=== PATIENT | female | born 1945 | race Caucasian/White ===

== ENCOUNTER 2020-03-03 13:38 | Outpatient (CLI) | payer MEDICARE, MEDICAID, SELFPAY ==
--- NOTE | 2020-03-03 13:45 | MM_ITS ---
WS: [id number] BILATERAL DIGITAL SCREENING MAMMOGRAPHY WITH CAD CLINICAL INFORMATION: SCREENING HISTORY: Screening mammogram. No current complaints. COMPARISON: TECHNIQUE: Bilateral CC and MLO views. FINDINGS: Scattered fibroglandular densities bilaterally. No suspicious focal mass, asymmetry, calcifications, or architectural distortion. No evidence of malignancy. Lucent centered and vascular calcification. D ystrophic and punctate calcifications. MM/[place] [id number] IMPRESSION: BI-RADS: 2-Benign FOLLOW UP: 1 Year Follow-up Recommend return to annual screening mammography.
== END 2020-03-03 13:39 | disposition home or self-care (01) ==
PROVIDERS: PCP Internal Medicine; Visit Provider Internal Medicine
DX: Z12.31 Encounter for screening mammogram for malignant neoplasm of breast (principal)
CPT/HCPCS: 77067

== ENCOUNTER → 2020-07-15 09:04 | Outpatient (BNVA) | payer MEDICARE, MEDICAID, SELFPAY | PROVIDERS: PCP Internal Medicine; Visit Provider Family Medicine | DX: I10 Essential (primary) hypertension (principal); E78.5 Hyperlipidemia, unspecified; E11.9 Type 2 diabetes mellitus without complications; H69.80 Other specified disorders of Eustachian tube, unspecified ear | CPT/HCPCS: 80053; 80061; 81015; 82043; 83036; 85025 ==

== ENCOUNTER 2021-01-09 08:42 | Outpatient (CLI) | payer MEDICARE, MEDICAID, SELFPAY ==
--- NOTE | 2021-01-09 08:49 | XR_ITS ---
WS: [id number] Left forearm, AP and lateral views, 01/09/2021 Clinical Data: left forearm pain Comparison: None. Findings: No fracture or dislocations are seen. The soft tissues are normal. The visualized left wrist and elbo w show no obvious fractures. XR/XR forearm LT 2V [id number] Impression: Negative for left forearm fracture.
--- NOTE | 2021-01-09 08:49 | XR_ITS ---
WS: [id number] Left wrist, AP and lateral views, 01/09/2021 Clinical Data: left wrist pain Comparison: None. Findings: No fractures or dislocations are seen. The carpal bones are intact. There is no soft tissue swelling. There is irregularity of the distal ulna which may be from an old injury. XR/XR wrist LT 2V [id number] Impression: Negative for fracture of the left wrist.
== END 2021-01-09 08:43 | disposition home or self-care (01) ==
PROVIDERS: PCP Internal Medicine; Visit Provider Family Medicine
DX: M79.602 Pain in left arm (principal); M25.532 Pain in left wrist; E78.5 Hyperlipidemia, unspecified; E11.9 Type 2 diabetes mellitus without complications; I10 Essential (primary) hypertension
CPT/HCPCS: 73090; 73100; 80053; 80061; 83036

== ENCOUNTER 2021-03-05 09:03 | Outpatient (CLI) | payer MEDICARE, MEDICAID, SELFPAY ==
--- NOTE | 2021-03-05 09:09 | MM_ITS ---
WS: [id number] BILATERAL SCREENING DIGITAL MAMMOGRAM WITH CAD HISTORY: SCREENING COMPARISON: 03/03/2020 and 12/07/2018 Bilateral CC and MLO views submitted. Computer aided detection analyzed. Breast composition: There are scattered areas of fibroglandular density. No suspicious masses, microc alcifications or architectural distortion. Numerous benign calcifications scattered bilaterally. Ther e are additional rodlike calcifications bilaterally. MM/[place] [id number] IMPRESSION: BI-RADS: 2-Benign FOLLOW UP: 1 Year Follow-up
== END 2021-03-05 09:04 | disposition home or self-care (01) ==
LOC: RADSHAW 09:08
PROVIDERS: PCP Family Medicine; Visit Provider Family Medicine
DX: Z12.31 Encounter for screening mammogram for malignant neoplasm of breast (principal)
CPT/HCPCS: 77067

== ENCOUNTER → 2021-08-10 08:24 | Outpatient (BNVA) | payer MEDICARE, MEDICAID, SELFPAY | PROVIDERS: PCP Family Medicine; Visit Provider Family Medicine | DX: E11.9 Type 2 diabetes mellitus without complications (principal); E78.5 Hyperlipidemia, unspecified; I10 Essential (primary) hypertension | CPT/HCPCS: 80053; 80061; 82043; 83036; 85025 ==

== ENCOUNTER → 2021-08-26 14:18 | Outpatient (BNVA) | payer MEDICARE, MEDICAID, SELFPAY | PROVIDERS: PCP Family Medicine; Visit Provider Nurse Practitioner Family | DX: Z20.822 Contact with and (suspected) exposure to COVID-19 (principal) | CPT/HCPCS: 87635 ==

== ENCOUNTER → 2021-11-10 09:44 | Outpatient (BNVA) | payer MEDICARE, MEDICAID, SELFPAY | PROVIDERS: PCP Family Medicine; Visit Provider Family Medicine | DX: E11.9 Type 2 diabetes mellitus without complications (principal) | CPT/HCPCS: 80053; 83036 ==

== ENCOUNTER 2022-03-12 08:37 | Outpatient (CLI) | payer MEDICARE, MEDICAID, SELFPAY ==
--- NOTE | 2022-03-12 08:43 | MM_ITS ---
WS: [id number] BILATERAL SCREENING DIGITAL BREAST TOMOSYNTHESIS MAMMOGRAM WITH CAD HISTORY: SCREENING COMPARISON: 03/05/2021 and 03/03/2020 Bilateral CC and MLO views with tomosynthesis and synthetic mammography submitted. Computer aided det ection analyzed. Breast composition: There are scattered areas of fibroglandular density. No suspicious masses, microc alcifications or architectural distortion. Numerous bilateral benign calcifications. MM/[place] [id number] IMPRESSION: BI-RADS: 2-Benign FOLLOW UP: 1 Year Follow-up
== END 2022-03-12 08:38 | disposition home or self-care (01) ==
LOC: RAD 08:38
PROVIDERS: PCP Family Medicine; Visit Provider Family Medicine
DX: Z12.31 Encounter for screening mammogram for malignant neoplasm of breast (principal)
CPT/HCPCS: 77063; 77067

== ENCOUNTER → 2022-05-11 08:40 | Outpatient (BNVA) | payer MEDICARE, MEDICAID, SELFPAY | PROVIDERS: PCP Family Medicine; Visit Provider Family Medicine | DX: I10 Essential (primary) hypertension (principal); E11.9 Type 2 diabetes mellitus without complications; E78.5 Hyperlipidemia, unspecified | CPT/HCPCS: 80053; 80061; 82043; 83036; 85025 ==

== ENCOUNTER → 2022-11-09 09:13 | Outpatient (BNVA) | payer MEDICARE, MEDICAID, SELFPAY | PROVIDERS: PCP Family Medicine; Visit Provider Family Medicine | DX: E11.9 Type 2 diabetes mellitus without complications (principal); J45.909 Unspecified asthma, uncomplicated | CPT/HCPCS: 80053; 83036 ==

== ENCOUNTER → 2023-01-31 09:07 | Outpatient (BNVA) | payer MEDICARE, MEDICAID, SELFPAY | PROVIDERS: PCP Family Medicine; Visit Provider Family Medicine | DX: E11.9 Type 2 diabetes mellitus without complications (principal) | CPT/HCPCS: 80053; 83036 ==

== ENCOUNTER 2023-03-16 07:31 | Outpatient (CLI) | payer MEDICARE, MEDICAID, SELFPAY ==
--- NOTE | 2023-03-16 | MM_ITS ---
WS: [id number] BILATERAL SCREENING DIGITAL TOMOSYNTHESIS MAMMOGRAM WITH CAD HISTORY: SCREENING COMPARISON: 03/12/2022 and 03/05/2021 Bilateral CC and MLO views with tomosynthesis and synthetic mammography submitted. Computer aided det ection analyzed. Breast composition: There are scattered areas of fibroglandular density. No suspicious masses, microc alcifications or architectural distortion. Numerous benign calcifications in each breast. MM/[place] [id number] IMPRESSION: BI-RADS: 2-Benign FOLLOW UP: 1 Year Follow-up
== END 2023-03-16 07:32 | disposition home or self-care (01) ==
LOC: RAD 07:35
PROVIDERS: PCP Family Medicine; Visit Provider Family Medicine
DX: Z12.31 Encounter for screening mammogram for malignant neoplasm of breast (principal)
CPT/HCPCS: 77063; 77067

== ENCOUNTER → 2023-05-10 09:20 | Outpatient (BNVA) | payer MEDICARE, MEDICAID, SELFPAY | PROVIDERS: PCP Family Medicine; Visit Provider Family Medicine | DX: I10 Essential (primary) hypertension (principal); E78.5 Hyperlipidemia, unspecified; E11.9 Type 2 diabetes mellitus without complications; Z78.0 Asymptomatic menopausal state; J45.41 Moderate persistent asthma with (acute) exacerbation | CPT/HCPCS: 80053; 80061; 82043; 83036; 85025 ==

== ENCOUNTER 2023-05-24 14:32 | Outpatient (CLI) | payer MEDICARE, MEDICAID, SELFPAY ==
--- NOTE | 2023-05-24 15:00 | XR_ITS ---
WS: [id number] SCREENING DEXA SCAN Qype CLINICAL INFORMATION: postmenopausal COMPARISON: None. FINDINGS: The L1-L4 bone mineral density measures 1.270 g/cm2. This corresponds to a T score score of 0.7 and Z score of 2.2. Left femoral neck bone mineral density measures 0.870 g/cm2. This corresponds to a T score of -1.1 an d Z score of 0.4. Right femoral neck bone mineral density measures 0.936 g/cm2. This corresponds to a T score -0.6of an d Z score of 1.0. Mean femoral neck bone mineral density measures 0.903 g/cm2. This corresponds to a T score of -0.8 an d Z score of 0.7. IMPRESSION: Normal bone mineralization lumbar spine. Normal bone mineralization femoral necks approaching osteope elenita. Patient's FRAX calculated 10 year probability for major osteoporotic fracture is 20.9% and osteoporot ic hip fracture is 5.4%.
== END 2023-05-24 14:33 | disposition home or self-care (01) ==
LOC: RAD 14:35
PROVIDERS: PCP Family Medicine; Visit Provider Family Medicine
DX: Z78.0 Asymptomatic menopausal state (principal)
CPT/HCPCS: 77080

== ENCOUNTER → 2023-06-29 08:59 | Outpatient (BNVA) | payer MEDICARE, MEDICAID, SELFPAY | PROVIDERS: PCP Family Medicine; Visit Provider Nurse Practitioner Family | DX: C44.311 Basal cell carcinoma of skin of nose (principal); L57.8 Other skin changes due to chronic exposure to nonionizing radiation; D18.01 Hemangioma of skin and subcutaneous tissue; L81.4 Other melanin hyperpigmentation; L82.1 Other seborrheic keratosis | CPT/HCPCS: 11102; 99213 ==

== ENCOUNTER → 2023-07-25 07:58 | Outpatient (BNVA) | payer MEDICARE, MEDICAID, SELFPAY | PROVIDERS: PCP Family Medicine; Visit Provider Dermatology | DX: C44.311 Basal cell carcinoma of skin of nose (principal) | CPT/HCPCS: 17311 ==

== ENCOUNTER → 2023-08-23 10:26 | Outpatient (BNVA) | payer MEDICARE, MEDICAID, SELFPAY | PROVIDERS: PCP Family Medicine; Visit Provider Dermatology | DX: Z48.817 Encounter for surgical aftercare following surgery on the skin and subcutaneous tissue (principal); Z85.828 Personal history of other malignant neoplasm of skin; L57.8 Other skin changes due to chronic exposure to nonionizing radiation; L81.4 Other melanin hyperpigmentation | CPT/HCPCS: 99213 ==

== ENCOUNTER → 2023-11-08 08:52 | Outpatient (BNVA) | payer MEDICARE, MEDICAID, SELFPAY | PROVIDERS: PCP Family Medicine; Visit Provider Family Medicine | DX: E11.9 Type 2 diabetes mellitus without complications (principal); R00.2 Palpitations; I10 Essential (primary) hypertension; Z11.59 Encounter for screening for other viral diseases | CPT/HCPCS: 80048; 83036; 86803 ==

== ENCOUNTER → 2024-04-10 12:38 | Outpatient (BNVA) | payer OTHER, MEDICAID, SELFPAY | PROVIDERS: PCP Family Medicine; Referring Provider Family Medicine; Visit Provider Internal Medicine | DX: R00.1 Bradycardia, unspecified (principal) | CPT/HCPCS: 93005 ==

== ENCOUNTER → 2024-04-24 11:34 | Outpatient (BNVA) | payer OTHER, MEDICAID, SELFPAY | PROVIDERS: PCP Family Medicine; Visit Provider Family Medicine | DX: R00.1 Bradycardia, unspecified (principal) | CPT/HCPCS: 80053; 80061; 83036; 84439; 84443; 85025 ==

== ENCOUNTER → 2024-05-28 11:34 | Outpatient (BNVA) | payer OTHER, MEDICAID, SELFPAY | PROVIDERS: PCP Family Medicine; Visit Provider Family Medicine | DX: B35.1 Tinea unguium (principal) | CPT/HCPCS: 80053 ==

== ENCOUNTER 2024-05-29 08:12 | Outpatient (CLI) | payer OTHER, MEDICAID, SELFPAY ==
--- NOTE | 2024-05-29 | ECG_ITS ---
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 Interpretive Statements Exercise sestamibi stress test EXERCISE DATA: The patient was exercised by Topher protocol. Baseline heart rate was 48 beats per minute. Baseline blood pressure [id number]/83millimeters of mercury. Maximal predicted heart rate was 144 beats per minute. Maximum heart rate achieved [id number], which was 104% of the maximum predicted heart rate. Maximum blood pressure [id number]/77 millimeters of mercury. Total exercise time was 3 minutes 55 seconds. Maximum METs achieved was 7. The reason for ending the test was maximal effort was achieved. The patient complained of shortness of breath during the stress test, which then resolved at the end of the test. ELECTROCARDIOGRAM: BASELINE: Showed sinus bradycardia, normal axis, no significant ST-T changes at the baseline noted. [] EXERCISE: At the peak exercise level, [] No significant ST-T changes suggestive of ischemia noted. [] RECOVERY: During the recovery period, heart rate dropped appropriately. No significant ST-T changes in the recovery suggestive of ischemia noted. [] CONCLUSION: 1. Exercise capacity is fair. 2. Heart rate response was appropriate. 3. Blood pressure response was appropriate. 4. Symptoms not suggestive of ischemia. 5. Electrocardiogram portion of the stress test was not suggestive of ischemia. 6. Nuclear scan will be documented separately. Electronically Signed On 06-01-2024 20:26:36 CDT by Spencer Tamez M.D. [email or web address]
--- NOTE | 2024-05-29 08:14 | NMCV_ITS ---
NM latricia perf SPECT r/s* [id number] Annette Jin Age: 78 Gender: F : 1945 Exam Date: 05/29/2024 08:56 Ordering Phys: Spencer Tamez M.D ([email or web address]) Technologist: NELSY Lindsay Exam Location: [facility] Indications: cp STRESS TEST [facility] IMAGE PROTOCOL Rest/Stress 1 Exercise Day Radiopharmaceutical Dose (mCi) Administration Site Administered by Rest: Tc-99m 10.2 IV NELSY Lindsay Sestamibi Stress:Tc-99m 32.8 IV Erica Diamond, JET MECHANIC Sestamibi Rest: 29-May-2024 60 Discovery 630 Stress: 29-May-2024 10 Discovery 630 Radiopharmaceutical was injected at 85 % maximum heart rate. Images obtained in supine and prone position. SPECT RESULTS Technical Quality: Good Raw Data Analysis: Normal Image Corrections: No attenuation or motion correction applied Summed Stress Score: 2 Summed Rest Score: 1 Summed Difference Score: 1 PERFUSION FINDINGS Small area of fixed perfusion defect is seen in the inferolateral wall. 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 No evidence of ischemia FUNCTIONAL RESULTS (calculated via Gated SPECT) Stress Image LV EF (%): 75 Stress EDV (mL):60 TID: 0.88 Stress ESV (mL):15 FUNCTIONAL FINDINGS: There is normal left ventricular systolic function. IMPRESSIONS 1. 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 No evidence of ischemia. 2. LV systolic function is normal. Spencer Tamez MD (Electronically Signed) Final Date: 29 May 2024 11:04 S
[2024-05-29 08:15] VITALS: BMI 31.1
[2024-05-29 09:50] VITALS: BP 175/79; PULSE 62
--- NOTE | 2024-05-29 11:00 | USCV_ITS ---
Annette Jin Age: 78 Gender: F : 1945 Exam Date: 05/29/2024 10:42 Ordering Phys: Spencer Tamez M.D ([email or web address]) Technologist: [place] [facility] [place]: cp BP: 130 / 80 HR: 56 Rhythm: Sinus Technical Quality: Adequate MEASUREMENTS (Male / Female) Normal Values 2D ECHO LV Diastolic Diameter PLAX 4.1 cm 4.2 - 5.9 / 3.9 - 5.3 cm IVS Diastolic Thickness 0.9 cm 0.6 - 1.0 / 0.6 - 0.9 cm IVS Systolic Thickness 1.6 cm LVPW Diastolic Thickness 1.1 cm 0.6 - 1.0 / 0.6 - 0.9 cm LVPW Systolic Thickness 1.4 cm LVOT Diameter 2.1 cm LV Ejection Fraction 2D Teich 63.0 % LV Ejection Fraction MOD 4C 69.8 % LV Ejection Fraction MOD 2C 65.9 % LV Ejection Fraction 2C AL 67.7 % LA Diameter 2.9 cm RA Systolic Volume 4C AL 37.1 ml RA Systolic Volume 4C MOD 37.8 ml Aorta at Sinotubular Diameter 2.7 cm IVC Diameter 1.7 cm M-MODE LA Ao Ratio MM 1.3 AV Cusp Separation MM 2.0 cm DOPPLER AV Peak Velocity 113.0 cm/s LVOT Peak Velocity 70.0 cm/s AV Area Cont Eq vti 2.0 cm squared AV Area Cont Eq pk 2.1 cm squared MV Peak Velocity 116.0 cm/s MV Area PHT 5.6 cm squared Mitral E to A Ratio 0.9 TR Peak Velocity 295.0 cm/s TR Peak Gradient 34.8 mmHg TV Peak E Velocity 96.0 cm/s Right Atrial Pressure 3.0 mmHg Pulmonary Artery Systolic Pressu 37.8 mmHg PV Peak Velocity 72.0 cm/s FINDINGS Left Ventricle Normal left ventricular size, systolic function and wall thickness, with no regional wall motion abnormalities. Left ventricular ejection fraction is estimated at 60 %. Grade I/IV diastolic dysfunction (abnormal relaxation filling pattern), normal to mildly elevated filling pressures. Right Ventricle The right ventricle is normal in size and function. Right Atrium The right atrium is normal in size. Left Atrium The left atrium is normal in size. Mitral Valve Moderately thickened mitral valve. Trace mitral valve regurgitation. Aortic Valve Moderate aortic valve calcification. No aortic valve stenosis. Trace aortic valve regurgitation. Tricuspid Valve Structurally normal tricuspid valve without significant stenosis or regurgitation. Pulmonary artery systolic pressure is normal. Pulmonic Valve Structurally normal pulmonic valve without significant stenosis. There is no pulmonic regurgitation. Pericardium Normal pericardium without effusion. Aorta Normal ascending aorta dimension. IVC The inferior vena cava appears normal. CONCLUSIONS Normal left ventricular size, systolic function and wall thickness, with no regional wall motion abnormalities. Left ventricular ejection fraction is estimated at 60 %. Grade I/IV diastolic dysfunction (abnormal relaxation filling pattern), normal to mildly elevated filling pressures No significant valve abnormalities. There is no pericardial effusion. Pulmonary artery systolic pressure is within normal limits. Right atrial pressure is around 5 mm of mercury. Stone Welsh MD (Electronically Signed) Final Date: 29 May 2024 17:54 S
== END 2024-05-29 08:13 | disposition home or self-care (01) ==
LOC: CDL 08:12
PROVIDERS: PCP Family Medicine; Visit Provider Internal Medicine
DX: I50.30 Unspecified diastolic (congestive) heart failure (principal); I34.81 Nonrheumatic mitral (valve) annulus calcification; I70.0 Atherosclerosis of aorta; R07.9 Chest pain, unspecified; R06.09 Other forms of dyspnea
CPT/HCPCS: 36415; 78452; 93017; 93306; A9500

== ENCOUNTER → 2024-10-30 11:59 | Outpatient (BNVA) | payer OTHER, MEDICAID, SELFPAY | PROVIDERS: PCP Family Medicine; Visit Provider Family Medicine | DX: E11.9 Type 2 diabetes mellitus without complications (principal) | CPT/HCPCS: 80053; 82043; 83036 ==

== ENCOUNTER 2025-03-20 07:15 | Emergency (ER) | payer OTHER, MEDICAID, SELFPAY ==
--- OUTSIDE RECORDS SUMMARY | 2024-12-04 06:47 | XMS_ITS | Continuity of Care Document ---
Author Organization [facility] Address [address] [place] [address] Phone Care Team Providers Care Absence Management Consultant Name Role Phone Leodan Yancey DO Unavailable Unavailable Allergies, Adverse Reactions, Alerts Substance Reaction Status Criticality amoxicillin Active No Information clindamycin Active No Information oxycodone Active No Information tramadol Active No Information Sulfa (Sulfonamide Antibiotics) Active No Information PHENAZOPYRIDINE HCL Active No Infor mation Medications Medication Instructions Dosage Effective Dates (start - stop) Status Comments Valium 2 mg tablet TAKE 1 TABLET BY MOUTH AT BEDTIME - Active Novolin N NPH U-100 Insulin isophane 100 unit/mL subcutaneous susp Inject 21u under the skin every morning & 36u every evening (5 vials for 88 days supply) - Active hydrochlorothiazide 50 mg tablet take 1 tablet by oral route every day 50 MG - Active levothyroxine 75 mcg tablet TAKE 1 TABLET BY MOUTH EVERY DAY - Active glipizide 10 mg tablet TAKE 1 TABLET BY MOUTH TWICE DAILY BEFORE A MEAL - Active True Metrix Glucose Test Strip USE TO TEST BLOOD SUGAR DAILY - Active Humulin N NPH U-100 Insulin (isophane susp) 100 unit/mL subcutaneous INJECT 21 UNITS UNDER THE SKIN EVERY MORNING AND 36 UNITS EVERY EVENING (5 VIALS IS AN 88 DAY SUPPLY) - Active atorvastatin 40 mg tablet TAKE 1 TABLET BY MOUTH DAILY - Active Farxiga 10 mg tablet take 1 tablet by oral route every day in the morning 10 MG - Active lisinopril 40 mg tablet TAKE 1 TABLET BY MOUTH EVERY DAY - Active Humulin R Regular U-100 Insulin 100 unit/mL injection solution INJECT 5 UNITS UNDER THE SKIN EVERY MORNING AND 11 UNITS UNDER THE SKIN EVERY EVENING - Active Maximum D3 325 mcg (13,000 unit) capsule take 1 capsule by oral route every week for 1 month 1 capsule - Active True Metrix Glucose Meter kit 1 time daily - Active Co Q-10 100 mg capsule take 1 capsule by oral route every day 1 capsule - Active magnesium 250 mg tablet - Active pantoprazole 40 mg tablet,delayed release take 1 tablet by oral route every day 40 MG - Active Calcium 600 mg calcium (1,500 mg) tablet take 1 tablet by mouth daily - Active aspirin 81 mg tablet,delayed release take 1 tablet by oral route every day 81 MG - Active Ocuvite with Lutein 1,000 unit-200 mg-60 unit-2mg tablet take 1 capsule by oral route every day for 1 month 1 capsule - Active Centrum Silver Women 8 mg iron-400 mcg-300 mcg tablet take 1 tablet daily - Active B12 5,000 mcg-100 mcg sublingual lozenge take 1 tablet daily - Active cranberry 500 mg capsule take 1 tablet b y mouth daily - Active Claritin-D 24 Hour 10 mg-240 mg tablet,extended release take 1 tablet by oral route every day as needed 1.00 tablet - Active Valium 2 mg tablet TAKE 1 TABLET BY MOUTH AT BEDTIME - No Longer Active Procedures Procedure Date OFFICE/OUTPATIENT VISIT, EST COMPREHEN METABOLIC PANEL GLYCATED HEMOGLOBIN TEST LIPID PANEL ASSAY THYROID STIM HORMONE ROUTINE VENIPUNCTURE Admin influenza virus vac FLU VACC PRSV FREE INC ANTIG No Charge OFFICE/OUTPATIENT VISIT, EST ROUTINE VENIPUNCTURE No Charge COMPREHEN METABOLIC PANEL GLYCATED HEMOGLOBIN TEST LIPID PANEL DRAINAGE OF SKIN ABSCESS OFFICE/OUTPATIENT VISIT, EST URINALYSIS, AUTO, W/O SCOPE OFFICE/OUTPATIENT VISIT, EST OFFICE/OUTPATIENT VISIT, EST Admin influenza virus vac FLU VACC PRSV FREE INC ANTIG OFFICE/OUTPATIENT VISIT, EST ROUTINE VENIPUNCTURE COMPREHEN METABOLIC PANEL GLYCATED HEMOGLOBIN TEST LIPID PANEL OFFICE/OUTPATIENT VISIT, EST GLYCATED HEMOGLOBIN TEST ASSAY THYROID STIM HORMONE No Charge ROUTINE VENIPUNCTURE INFLUENZA ASSAY W/OPTIC INFLUENZA ASSAY W/OPTIC OFFICE/OUTPATIENT VISIT, EST Rocephin Ceftriaxone sodium Inj Per 250m g OFFICE/OUTPATIENT VISIT, EST OFFICE/OUTPATIENT VISIT, EST COMPREHEN METABOLIC PANEL GLYCATED HEMOGLOBIN TEST LIPID PANEL ROUTINE VENIPUNCTURE OFFICE/OUTPATIENT VISIT, EST OFFICE/OUTPATIENT VISIT, EST ROUTINE VENIPUNCTURE COMPREHEN METABOLIC PANEL GLYCATED HEMOGLOBIN TEST LIPID PANEL OFFICE/OUTPATIENT VISIT, EST ROUTINE VENIPUNCTURE BASIC METABOLIC PANEL COMPLETE CBC W/AUTO DIFF WBC GLYCATED HEMOGLOBIN TEST LIPID PANEL ASSAY THYROID STIM HORMONE OFFICE/OUTPATIENT VISIT, EST OFFICE/OUTPATIENT VISIT, EST ROUTINE VENIPUNCTURE OFFICE/OUTPATIENT VISIT, EST BASIC METABOLIC PANEL OFFICE/OUTPATIENT VISIT, EST COMPREHEN METABOLIC PANEL LIPID PANEL GLYCATED HEMOGLOBIN TEST ROUTINE VENIPUNCTURE No Charge Advance Directives Directive Yes / No Effective Date File Name No Information Encounters Encounter Description Practice Location Reason(s) For Visit Diagnoses Date Provider Providers Copied on Encounter [facility], [facility] [place], [place], [id number], tel:[phone] [facility] No Information Naye Alcocer. [address] [place], [address]. tel:[phone] [facility], [facility] [place], [id number], [place] tel:[phone] [facility] Meniere's disease, unspecified ear Naye Alcocer. [address] [place], [address]. [phone] [facility], [facility] [address] [place], [id number], [place] tel:[phone] [facility] No Information Naye Alcocer. [address] [place], [address]. [phone] OFFICE/OUTPA TIENT VISIT, EST [facility], [facility] [place], [place], [id number], [place] tel:[phone] [facility] hypertension (chief complaint)saroj betes (chief complaint) Type 2 diabetes mellitus without complicationsHypo thyroidism, unspecifiedEssent ial (primary) hypertensionCardi ac arrhythmia, unspecifiedHyperl ipidemia, unspecified 5 Naye Alcocer. [address] [place], [address]. [phone] Referring Provider: Leodan Yancey, [address] [place], [address]. tel:[phone] [facility], [facility] [place], [id number], [place] tel:[phone] [facility] Essential (primary) hypertensionType 2 diabetes mellitus without complicationsHype rlipidemia, unspecifiedHypoth yroidism, unspecified 5 Naye Alcocer. [address] [place], [address]. tel:[phone] Referring Provider: Leodan Yancey, [address] [place], [address]. tel:[phone] [facility], [facility] [address] [place], [id number], [place] tel:[phone] [facility] Type 2 diabetes mellitus without complicationsHypo thyroidism, unspecifiedEssent ial (primary) hypertensionHyper lipidemia, unspecified 5 Naye Alcocer. [address] [place], [address]. tel:[phone] Referring Provider: Leodan Yancey, [address] [place], [address]. tel:[phone] [facility], [address] [place] [address], [id number], [place] tel:[phone] [facility] No Information 4 Naye Alcocer. [address] [place], [address]. tel: [phone] [facility], [facility] [address] [place], [id number], [place] tel:[phone] [facility] No Information 4 Naye Alcocer. [address] [place], [address]. tel: [phone] [facility], [address] [place] [address], [id number], [place] tel:[phone] [facility] No Information 4 Naye Alcocer. [address] [place], [address]. tel:[phone] [facility], [address] [place] [address], [id number], [place] tel:[phone] [facility] Encounter for vaccination May- 4 Naye Alcocer. [address] [place], [address]. tel:[phone] Referring Provider: Leodan Yancey, [address] [place], [address]. tel:[phone] [facility], [facility] [place], [id number], [place] tel:[phone] [facility] No Information 4 Naye Alcocer. [address] [place], [address]. tel: [phone] [facility], [facility] [address] [place], [id number], [place] tel:[phone] [facility] No Information 4 Naye Alcocer. [address] [place], [address]. tel:[phone] OFFICE/OUTPA TIENT VISIT, EST [facility], [facility] [place], [address], [place] tel:[phone] [facility] Preventive exam (chief complaint)hyp ertension (chief complaint)saroj betes (chief complaint) Encounter for general adult medical examination without abnormal findingsType 2 diabetes mellitus without complicationsEsse ntial (primary) hypertensionHyper lipidemia, unspecified 4 Naye Alcocer. [address] [place], [address]. tel:[phone] Referring Provider: Leodan Yancey, [address] [place], [address]. tel:[phone] [facility], [facility] [place], [address], [place] tel:[phone] [facility] Type 2 diabetes mellitus without complicationsEsse ntial (primary) hypertensionHyper lipidemia, unspecified 4 Naye Alcocer. [address] [place], [address]. [phone] Referring Provider: Leodan Yancey [address] [place], [address]. tel:[phone] [facility], [facility] [place], [id number], [place] tel:[phone] [facility] No Information 4 Naye Alcocer. [address] [place], [address]. [phone] [facility], [address], [place], [id number], [place] tel:[phone] [facility] Lesion(s) (chief complaint) Cutaneous abscess of groinCellulitis [address] [place], [address], [place]. [phone] Referring Provider: Shaye Narvaez, [address] [place], [address]. tel:[phone] OFFICE/OUTPA TIENT VISIT, EST [facility], [facility] [place], [address], [place] tel:[phone] [facility] diabetes (chief complaint)Jolene nt pain (chief complaint) Type 2 diabetes mellitus without complications 4 Naye Alcocer. [address] [place], [address]. [phone] Referring Provider: Leodan Yancey, [address] [place], [address]. tel:[phone] [facility], [facility] [place], [id number], [place] tel:[phone] [facility] No Information 4 Naye Alcocer. [address] [place], [address]. [phone] OFFICE/OUTPA TIENT VISIT, EST [facility], [facility] [place], [id number], [place] tel:[phone] [facility] Urinary tract infection (chief complaint) UTI 4 Olu Bright. [address] [place], [address], [place]. [phone] Referring Provider: Kaila Raines, [address] [place], [address]. tel:[phone] OFFICE/OUTPA TIENT VISIT, EST [facility], [address], [place], [id number], tel:[phone] [facility] Cold symptoms (chief complaint) COVID-19 4 Naye Alcocer. [address] [place], [address]. tel: [phone] Referring Provider: Leodan Yancey, [address] [place], [address]. tel:[phone] [facility], [address] [place] [address], [id number], tel:[phone] [facility] No Information 3 Naye Alcocer. [address] [place], [address]. [phone] OFFICE/OUTPA TIENT VISIT, EST [facility], [address] [place] [address], [id number], tel:[phone] [facility] diabetes (chief complaint) Type 2 diabetes mellitus without complicationsEnco unter for vaccination 3 Naye Alcocer. [address] [place], [address]. tel: [phone] Referring Provider: Leodan Yancey, [address] [place], [address]. tel:[phone] [facility], [address] [place] [address], [id number], [place] tel:[phone] [facility] Type 2 diabetes mellitus without complicationsEsse ntial (primary) hypertensionHyper lipidemia, unspecified Sep-2 3 Naye Alcocer. [address] [place], [address]. tel:[phone] Referring Provider: Leodan Yancey, [address] [place], [address]. tel:[phone] OFFICE/OUTPA TIENT VISIT, EST [facility], [address] [place] [address], [id number], [place] tel:[phone] [facility] diabetes (chief complaint) Type 2 diabetes mellitus without complications 3 Naye Alcocer. [address] [place], [address]. tel: [phone] Referring Provider: Leodan Yancey, [address] [place], [address]. tel:[phone] [facility], [facility] [address] [place], [id number], [place] tel:[phone] [facility] Essential (primary) hypertensionHyper lipidemia, unspecifiedType 2 diabetes mellitus without complicationsHypo thyroidism, unspecified Oct-2 3 Naye Alcocer. [address] [place], [address]. tel: [phone] [facility], [facility] [address] [place], [id number], [place] tel:[phone] [facility] No Information Oct- 3 Naye Alcocer. [address] [place], [address]. tel: [phone] Referring Provider: Leodan Yancey, [address] [place], [address]. tel:[phone] [facility], [facility] [address] [place], [address], [place] tel:[phone] [facility] Type 2 diabetes mellitus without complications 3 Naye Alcocer. [address] [place], [address]. tel: [phone] Referring Provider: Leodan Yancey, [address] [place], [address]. tel:[phone] OFFICE/OUTPA TIENT VISIT, EST [facility], [facility] [address] [place], [address], [place] tel:[phone] [facility] Cold symptoms (chief complaint) InfluenzaCOVID-19 3 Olu Bright. [address] [place], [address], [place]. tel: [phone] Referring Provider: Kaila Raines, [address] [place], [address]. tel:[phone] OFFICE/OUTPA TIENT VISIT, EST [facility], [facility] [address] [place], [id number], [place] tel:[phone] [facility] Swelling (chief complaint) Cellulitis of right leg 2 Naye Alcocer. [address] [place], [address]. tel:[phone] Referring Provider: Leodan Yancey, [place], [address]. tel:[phone] [facility], [facility] [place], [address], tel:[phone] [facility] No Information 2 Naye Alcocer. [address] [place], [address]. tel:[phone] OFFICE/OUTPA TIENT VISIT, EST [facility], [facility] [place], [id number], tel:[phone] [facility] Diabetes (follow up) (chief complaint) Type 2 diabetes mellitus without complications 2 Naye Alcocer. [address] [place], [address]. tel: [phone] Referring Provider: Leodan Yancey, [place], [address]. tel:[phone] [facility], [facility] [place], [address], [place] tel:[phone] [facility] Type 2 diabetes mellitus without complicationsHype rlipidemia, unspecified 2 Naye Alcocer. [address] [place], [address]. tel: [phone] Referring Provider: [place], [address]. tel:[phone] [facility], [facility] [place], [address], [place] tel:[phone] [facility] Type 2 diabetes mellitus without complications 2 Naye Alcocer. [address] [place], [address]. tel:[phone] Referring Provider: [place], [address]. tel:[phone] [facility], [address], [place], [id number], [place] tel:[phone] [facility] No Information 2 Olu Bright. [address] [place], [address], [place]. tel: [phone] OFFICE/OUTPA TIENT VISIT, EST [facility], [address], [place], [id number], [place] tel:[phone] [facility] diabetes (chief complaint) Type 2 diabetes mellitus without complications 2 Naye Alcocer. [address] [place], [address]. tel: [phone] Referring Provider: Leodan Yancey, [address] [place], [address]. tel:[phone] OFFICE/OUTPA TIENT VISIT, EST [facility], [address], [place], [id number], [place] tel:[phone] [facility] Discuss test results (chief complaint)MERARY D (chief complaint)Hea dache (chief complaint) Type 2 diabetes mellitus without complicationsVert igoGERD w/o esophagitis 2 Naye Alcocer. [address] [place], [address]. tel: [phone] Referring Provider: Leodan Yancey, [address] [place], [address]. tel:[phone] [facility], [address] [place], [place], [id number], [place] tel:[phone] [facility] Type 2 diabetes mellitus without complicationsHype rlipidemia, unspecified 2 Naye Alcocer. [address] [place], [address]. tel: [phone] Referring Provider: Leodan Yancey, [address] [place], [address]. tel:[phone] OFFICE/OUTPA TIENT VISIT, EST [facility], [address], [place], [id number], [place] tel:[phone] [facility] Discuss test results (chief complaint)saroj tolbert (chief complaint) Type 2 diabetes mellitus without complications 1 Naye Alcocer. [address] [place], [address]. tel: [phone] Referring Provider: Leodan Yancey, [place], [address]. tel:[phone] [facility], [address], [place], [address], tel:[phone] [facility] Hyperlipidemia, unspecifiedType 2 diabetes mellitus without complicationsEsse ntial (primary) hypertensionMalig nant neoplasm of unsp site of unspecified female breastHypothyroid ism, unspecified 1 Naye Alcocer. [address] [place], [address]. tel: [phone] Referring Provider: Leodan Yancey, [address] [place], [address]. tel:[phone] OFFICE/OUTPA TIENT VISIT, EST [facility], [address], [place], [id number], [place] tel:[phone] [facility] Abrasion(s) (chief complaint) Pain in unspecified ankle and joints of unspecified foot 1 Naye Alcocer. [address] [place], [address]. tel: [phone] Referring Provider: [place], [address]. tel:[phone] OFFICE/OUTPA TIENT VISIT, EST [facility], [address], [place], [id number], [place] tel:[phone] [facility] Dizziness (chief complaint) Meniere's disease of ear 1 Naye Alcocer. [address] [place], [address]. [phone] Referring Provider: Leodan Yancey [address] [place], [address]. tel:[phone] OFFICE/OUTPA TIENT VISIT, EST [facility], [address], [place], [id number], [place] tel:[phone] [facility] Dizziness (chief complaint) VertigoCancer of female breast Mar-0 1 Naye Alcocer. [address] [place], [address]. tel:[phone] Referring Provider: [place], [address]. tel:[phone] OFFICE/OUTPA TIENT VISIT, EST [facility], [address], [place], [id number], [place] tel:[phone] [facility] Discuss test results (chief complaint) VertigoGERD w/o esophagitisHyperl ipidemia, unspecifiedHypert ensionHypothyroid ismPain in unspecified shoulderType 2 diabetes mellitus without complications 1 Naye Alcocer. [address] [place], [address]. [phone] Referring Provider: Leodan Yancey, [address] [place], [address]. [phone] [facility], [address], [place], [address], [place] tel:[phone] [facility] Type 2 diabetes mellitus without complicationsHype rlipidemia, unspecified 1 Naye Alcocer. [address] [place], [address]. [phone] Referring Provider: [place], [address]. tel:[phone] [facility], [address], [place], [address], [place] tel:[phone] [facility] HyperlipidemiaHyp othyroidismHypert ensionGERD w/o esophagitisType 2 diabetes mellitus without complicationsPain in unspecified shoulder 1 Naye Alcocer. [address] [place], [address]. [phone] Referring Provider: Leodan Yancey [address] [place], [address]. tel:[phone] [facility], [address] [place] [address] A, [place], [place], [id number], [place] tel:[phone] [facility] Type 2 diabetes mellitus without complicationsVert igo 0 Gallo Rodriguez. [address] [place] [address], [address], [place]. tel:[phone] Referring Provider: Jennifer Holder, [address] [place] [address], [address]. tel:[phone] Family History Family Member Type Diagnosis Age At Onset Mother Problem Cancer, unknown (Cause Of De ath) 92 Father Problem Renal disease (Cause Of Deat h) Immunizations Vaccine Date Status Comments HighDose FLU administered Source: New Imm unization Record HighDose FLU administered Source: New Imm unization Record Fluzone High-Dose Quad administered Sourc e: Other Registry Influenza, high dose seasonal administere d Source: Other Provider Influenza Quad Adjuvanted administered So urce: Other Registry COVID-19 mRNA (PFR) administered Source: Other Registry COVID-19 mRNA (PFR) administered Source: Other Registry Recombinant Zoster (Shing administered So urce: Other Registry Influenza, High Dose (Flu administered So urce: Other Registry Recombinant Zoster (Shing administered So urce: Other Registry Influenza, High Dose (Flu administered So urce: Other Registry Payers Payer name Insurance type Covered libertarian ID Authoriza tion(s) Medicare [id number] HAC [id number] CI [id number] Medicare MB [id number] HAC [id number] CI [id number] Medicare MB [id number] [employer] CI [id number] Social History Type Description Quantity Date Captured Comments Sex Female Smoking Status No Information Chief Complaint And Reason For Visit No Information Reason For Referral Reason For Referral No Information Plan Of Treatment Date Type Action Status Goal DEXA Scan. Due on due Goal Hepatitis C screening. Due o n due Goal Influenza vaccine. Due on Oc due Goal Zoster vaccine (1st) due Goal Td vaccine. Due on due Goal Unhealthy drug use screening . Due on due Goal PAP. Due on due Goal Pneumococcal vaccine. Due on due Goal Zoster vaccine (2nd) due Goal Depression screening. Due on due Goal Tdap. Due on due Goal Depression screening. Due on due Goal Tdap. Due on due Goal Td vaccine. Due on due Goal Pneumococcal vaccine. Due on due Goal Influenza vaccine. Due on due Goal DEXA Scan. Due on due Goal PAP. Due on due Goal Zoster vaccine (1st) due Goal Zoster vaccine (2nd) due Goal Hepatitis C screening. Due o n due Goal Unhealthy drug use screening . Due on due Goal Depression screening. Due on due Goal Pneumococcal vaccine. Due on due Goal Unhealthy drug use screening . Due on due Goal PAP. Due on due Goal Zoster vaccine (2nd) due Goal Zoster vaccine (1st) due Goal Influenza vaccine. Due on Oc due Goal DEXA Scan. Due on due Goal Td vaccine. Due on due Goal Tdap. Due on due Goal Hepatitis C screening. Due o n due Goal Pneumococcal vaccine. Due on due Goal Zoster vaccine (2nd) due Goal Td vaccine. Due on due Goal Hepatitis C screening. Due o n due Goal Depression screening. Due on due Goal DEXA Scan. Due on due Goal Unhealthy drug use screening . Due on due Goal Influenza vaccine. Due on Oc due Goal Tdap. Due on due Goal PAP. Due on due Goal Zoster vaccine (1st) due Goal Influenza vaccine. Due on Oc due Goal Td vaccine. Due on due Goal Zoster vaccine (2nd) due Goal Pneumococcal vaccine. Due on due Goal Zoster vaccine (1st) due Goal Tdap. Due on due Goal Unhealthy drug use screening . Due on due Goal DEXA Scan. Due on due Goal Hepatitis C screening. Due o n due Goal PAP. Due on due Goal Mammogram. Due on due Goal Depression screening. Due on due Goal Tdap. Due on due Goal Depression screening. Due on due Goal Pneumococcal vaccine. Due on due Goal DEXA Scan. Due on due Goal Td vaccine. Due on due Goal Mammogram. Due on due Goal PAP. Due on due Goal Zoster vaccine (2nd) due Goal Zoster vaccine (1st) due Goal Influenza vaccine. Due on Oc due Goal Unhealthy drug use screening . Due on due Goal Hepatitis C screening. Due o n due Goal Tdap. Due on due Goal Pneumococcal vaccine. Due on due Goal DEXA Scan. Due on due Goal Mammogram. Due on due Goal Depression screening. Due on due Goal Zoster vaccine (2nd) due Goal Influenza vaccine. Due on Oc due Goal Zoster vaccine (1st) due Goal Unhealthy drug use screening . Due on due Goal PAP. Due on due Goal Td vaccine. Due on due Goal Hepatitis C screening. Due o n due Goal DEXA Scan. Due on due Goal Tdap. Due on due Goal Depression screening. Due on due Goal Pneumococcal vaccine. Due on due Goal Influenza vaccine. Due on due Goal Zoster vaccine (1st) due Goal Zoster vaccine (2nd) due Goal Td vaccine. Due on due Goal Hepatitis C screening. Due o n due Goal Unhealthy drug use screening . Due on due Goal PAP. Due on due Goal Mammogram. Due on due Goal Depression screening. Due on due Goal Zoster vaccine (1st) due Goal PAP. Due on due Goal Hepatitis C screening. Due o n due Goal Pneumococcal vaccine. Due on due Goal Influenza vaccine. Due on due Goal Zoster vaccine (2nd) due Goal Td vaccine. Due on due Goal Tdap. Due on due Goal DEXA Scan. Due on due Goal Unhealthy drug use screening . Due on due Goal Mammogram. Due on due Goal Tdap. Due on due Goal DEXA Scan. Due on due Goal Zoster vaccine (2nd) due Goal Unhealthy drug use screening . Due on due Goal FIT. Due on due Goal Pneumococcal vaccine. Due on due Goal Sigmoidoscopy. Due on due Goal Zoster vaccine (1st) due Goal FOBT. Due on due Goal Depression screening. Due on due Goal CT-Colonography. Due on due Goal Hepatitis C screening. Due o n due Goal Mammogram. Due on due Goal PAP. Due on due Goal Influenza vaccine. Due on Oc due Goal Colonoscopy. Due on 023 due Goal Lipid panel. Due on due Goal FIT-DNA. Due on due Goal Td vaccine. Due on due Goal Pneumococcal vaccine. Due on due Goal Lipid panel. Due on 028 due Goal FIT. Due on due Goal CT-Colonography. Due on due Goal DEXA Scan. Due on due Goal Sigmoidoscopy. Due on due Goal Mammogram. Due on due Goal Tdap. Due on due Goal Colonoscopy. Due on 023 due Goal Influenza vaccine. Due on Oc due Goal Zoster vaccine (1st). Due on due Goal Hepatitis C screening. Due o n due Goal Depression screening. Due on due Goal FIT-DNA. Due on due Goal Unhealthy drug use screening . Due on due Goal FOBT. Due on due Goal Td vaccine. Due on due Goal PAP. Due on due Goal Zoster vaccine. Due on due Goal Tdap. Due on due Goal Mammogram. Due on due Goal Influenza vaccine. Due on Oc due Goal PAP. Due on due Goal FOBT. Due on due Goal Zoster vaccine. Due on due Goal Colonoscopy. Due on 023 due Goal Sigmoidoscopy. Due on due Goal Td vaccine. Due on due Goal Pneumococcal vaccine. Due on due Goal Lipid panel. Due on 028 due Goal DEXA Scan. Due on due Goal Depression screening. Due on due Goal DEXA Scan. Due on due Goal PAP. Due on due Goal Zoster vaccine. Due on due Goal Td vaccine. Due on due Goal FOBT. Due on due Goal Lipid panel. Due on 028 due Goal Depression screening. Due on due Goal Influenza vaccine. Due on Oc due Goal FIT. Due on due Goal Mammogram. Due on due Goal CT-Colonography. Due on due Goal Colonoscopy. Due on 023 due Goal Sigmoidoscopy. Due on due Goal FIT-DNA. Due on due Goal Hepatitis C screening. Due o n due Goal Zoster vaccine (). Due on due Goal Unhealthy drug use screening . Due on due Goal Pneumococcal vaccine. Due on due Goal Tdap. Due on due Goal Influenza vaccine. Due on Oc due Goal FOBT. Due on due Goal Lipid panel. Due on 027 due Goal DEXA Scan. Due on due Goal PAP. Due on due Goal Depression screening. Due on due Goal Zoster vaccine. Due on due Goal Tdap. Due on due Goal Mammogram. Due on due Goal Sigmoidoscopy. Due on due Goal Td vaccine. Due on due Goal Colonoscopy. Due on 023 due Goal Pneumococcal vaccine. Due on due Goal Influenza vaccine. Due on Oc due Goal Sigmoidoscopy. Due on due Goal Zoster vaccine. Due on due Goal Lipid panel. Due on due Goal Colonoscopy. Due on 023 due Goal Pneumococcal vaccine. Due on due Goal Td vaccine. Due on due Goal Depression screening. Due on due Goal PAP. Due on due Goal Mammogram. Due on due Goal FOBT. Due on due Goal DEXA Scan. Due on due Goal Tdap. Due on due Goal Sigmoidoscopy. Due on due Goal DEXA Scan. Due on due Goal Depression screening. Due on due Goal Influenza vaccine. Due on Oc due Goal Td vaccine. Due on due Goal Zoster vaccine. Due on due Goal Lipid panel. Due on 027 due Goal Tdap. Due on due Goal FOBT. Due on due Goal Pneumococcal vaccine. Due on due Goal Colonoscopy. Due on 022 due Goal PAP. Due on due Goal Mammogram. Due on due Goal Td vaccine. Due on due Goal Sigmoidoscopy. Due on due Goal FOBT. Due on due Goal Mammogram. Due on due Goal Pneumococcal vaccine. Due on due Goal Influenza vaccine. Due on Oc due Goal DEXA Scan. Due on due Goal Zoster vaccine. Due on due Goal Depression screening. Due on due Goal Tdap. Due on due Goal PAP. Due on due Goal Colonoscopy. Due on 022 due Goal Lipid panel. Due on 027 due Goal Influenza vaccine. Due on Se due Goal PAP. Due on due Goal Sigmoidoscopy. Due on due Goal Zoster vaccine. Due on due Goal Pneumococcal vaccine. Due on due Goal Mammogram. Due on due Goal DEXA Scan. Due on due Goal Depression screening. Due on due Goal Lipid panel. Due on 027 due Goal Colonoscopy. Due on 022 due Goal Td vaccine. Due on due Goal Tdap. Due on due Goal FOBT. Due on due Goal Tdap. Due on due Goal Colonoscopy. Due on due Goal Td vaccine. Due on due Goal PAP. Due on due Goal DEXA Scan. Due on due Goal Zoster vaccine. Due on due Goal Depression screening. Due on due Goal Sigmoidoscopy. Due on due Goal Lipid panel. Due on due Goal Influenza vaccine. Due on due Goal FOBT. Due on due Goal Pneumococcal vaccine. Due on due Goal Mammogram. Due on due Goal Depression screening. Due on due Goal Influenza vaccine. Due on due Goal Lipid panel. Due on due Goal FOBT. Due on due Goal Td vaccine. Due on due Goal Mammogram. Due on due Goal Pneumococcal vaccine. Due on due Goal Tdap. Due on due Goal Zoster vaccine. Due on due Goal Sigmoidoscopy. Due on due Goal Colonoscopy. Due on 022 due Goal PAP. Due on due Goal DEXA Scan. Due on due Goal DEXA Scan. Due on due Goal Zoster vaccine. Due on due Goal Influenza vaccine. Due on due Goal Td vaccine. Due on due Goal Tdap. Due on due Goal FOBT. Due on due Goal Pneumococcal vaccine. Due on due Goal Lipid panel. Due on due Goal Mammogram. Due on due Goal Depression screening. Due on due Goal Sigmoidoscopy. Due on due Goal PAP. Due on due Goal Colonoscopy. Due on due Goal Tdap. Due on due Goal Sigmoidoscopy. Due on due Goal DEXA Scan. Due on due Goal Lipid panel. Due on due Goal PAP. Due on due Goal Pneumococcal vaccine. Due on due Goal Influenza vaccine. Due on due Goal Zoster vaccine. Due on due Goal Mammogram. Due on due Goal Depression screening. Due on due Goal Colonoscopy. Due on due Goal FOBT. Due on due Goal Td vaccine. Due on due Goal DEXA Scan. Due on due Goal Depression screening. Due on due Goal Pneumococcal vaccine. Due on due Goal Mammogram. Due on due Goal Zoster vaccine. Due on due Goal FOBT. Due on due Goal Td vaccine. Due on due Goal Colonoscopy. Due on due Goal Tdap. Due on due Goal Sigmoidoscopy. Due on due Goal Lipid panel. Due on due Goal PAP. Due on due Goal Influenza vaccine. Due on due Goal Depression screening. Due on due Goal Pneumococcal vaccine. Due on due Goal Influenza vaccine. Due on due Goal Mammogram. Due on due Goal FOBT. Due on due Goal DEXA Scan. Due on due Goal PAP. Due on due Goal Tdap. Due on due Goal Td vaccine. Due on due Goal Colonoscopy. Due on due Goal Lipid panel. Due on due Goal Sigmoidoscopy. Due on due Goal Zoster vaccine. Due on due Referral Ordered: -Cardiology (related to Cardiac arrhythmia, unspecified) ordered Referral Referred To: Ordered: Referrals: Cardiology. . Location: [facility]. Consult ordered Referral Ordered: Physical Therapy (related to Vertigo) ordered Referral Referred To: Physical Therapy Ordered: Referrals: Physical Therapy ordered Referral Ordered: MRI BRAIN W/O & W/DYE Bilateral ordered Appointment Annette Holder BOOKED Appointment Annette Holder BOOKED History Of Present Illness Encounter Date Complaint History Of Prese nt Illness diabetes The diabetes marisol litus began in 1991. The problem is stable. Risk factors include: family history diabetes mellitus, over age [age] years old and sedentary lifestyle. Managing with: Diet, Oral medications and Insulin. Comorbidity: Hypertension. Associated symptoms include: blurred vision. Pertinent negatives include chest pain, diarrhea, dyspnea, frequent infections, urinary frequency, increased fatigue and slow healing wounds / sores. Additional information: pt states she is having trouble getting a 90 day supply of her [place] R. hypertension The HTN started in 2009. The symptoms began gradually. The severity has been described as being mild-moderate. The symptoms are/last varies. Comorbid conditions include diabetes mellitus. It is currently stable. Risk factors include age over age 60, family history HTN, gout or CAD and obesity. Associated symptoms include visual disturbances. Pertinent negatives include chest pain, claudication, diaphoresis, dyspnea, fatigue, nausea and vomiting. Additional information: pt has a B/P log with her today, she did mention that her vision has been blurred Preventive exam The client state s using none for control. Patient's menses is absent. Negative for: breast discharge, breast pain and breast self exam. Positive for: breast lump(s) (side: bilateral).Postmenopausal. Negative for Hormone replacement therapy. Menopausal symptoms negative for: hot flashes and insomnia. Pertinent negatives include anxiety, depression and history of infertility. Diet regular.The client states Client's exercise level is moderate and frequency is occasional. The client has not been exposed to passive smoke. The client has not been exposed to passive vaping. The client does not drink alcohol. 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 hypertension The HTN started in 2009. The symptoms began gradually. The severity has been described as being mild-moderate. Comorbid conditions include diabetes mellitus. It is currently stable. Risk factors include family history HTN and gout or CAD. The hypertension is exacerbated by stress. Associated symptoms include fatigue and headache. diabetes The diabetes marisol litus began in 1991. The problem is stable. Risk factors include: family history diabetes mellitus, over age [age] years old and sedentary lifestyle. Client is compliant with using medication, follow-up, and using education materials. Managing with: Diet, Oral medications and Insulin. Comorbidity: Hypertension. Pertinent negatives include chest pain and dyspnea. Lesion(s) The symptoms beg an 4 days ago. The symptoms are reported as being mild. The symptoms occur daily. The location is Right Groin. Aggravating factors include client to customize. Relieving factors include client to customize. The client states the symptoms are acute. Patient presents with possible cyst in right groin. Patient has been using bacitracin OTC. diabetes The diabetes marisol litus began in 1991. The problem is stable. Risk factors include: family history diabetes mellitus, over age [age] years old and sedentary lifestyle. Client is compliant with using medication, follow-up, and using education materials. Managing with: Diet and Oral medications. Home glucose readings: Min 80, Max 140, Avg 100. Associated symptoms include: burning of extremities and increased fatigue. Additional information: Patient had surgery last month and brought labs with her. A1C 5.9. Joint pain Onset: 1 year ag o. It occurs rarely and is improving. Location: left hip. The pain radiates to the left foot. The pain is burning. Context: there is no injury. The pain is aggravated by bending and lifting. The pain is relieved by OTC medicines: ibuprofen and rest. Associated symptoms include decreased mobility, joint tenderness and nocturnal pain. Additional information: Patient had surgery on her SI joint on 10/18/2023 and reports great improvement. Urinary tract infection The onse t was 6 days ago. The severity of the problem is moderate. The problem has worsened. The symptoms are recurring. Symptoms began 08/25/2023. Presenting/Initial symptoms include burning, dysuria, flank pain and urgency. Pertinent history includes being over 50. Pertinent history does not include alcohol consumption or kidney disorders. Aggravating factors include urination. Symptoms are relieved by increased fluids, OTC analgesics and rest. Associated symptoms include cloudy urine, dysuria, straining to urinate, urinary frequency, lower abdominal pain and urethral pain. Cold symptoms The patient desc ribes the cough as barking, hacking and productive. It occurs persistently. The problem has become gradually worse. Context: allergies, behavioral and exercise. Symptoms are aggravated by allergens, cold air, exercise, fumes, laughing, lying down and stress. Associated symptoms include chills, cough, dyspnea, dyspnea on exertion, fatigue, fever, nasal congestion, sinus pressure and sore throat. Additional information: patient is here with cold like symptoms she was sick since Tuesday but has sinus issues all the time. diabetes The problem is s table. Risk factors include: family history diabetes mellitus, over age [age] years old and sedentary lifestyle. Client is compliant with using medication, follow-up, and using education materials. Managing with: Oral medications., Avg 130. Associated symptoms include: burning of extremities and increased fatigue. diabetes The problem is s table. Risk factors include: family history diabetes mellitus, over age [age] years old and sedentary lifestyle. Managing with: Oral medications. Additional information: patient is here for 6moth check up on her diabetes. she is doing well at this time and labs are stable. Cold symptoms Onset: 1 day ago . Severity: moderate. The patient describes the cough as productive (of yellow sputum). It occurs persistently. The problem has become gradually worse. Context: sick family member. Symptoms are aggravated by exertion and lying down. Relieving factors include decongestants. Associated symptoms include cough, dyspnea on exertion, fatigue, fever and nasal congestion. Swelling The swelling is random. The severity is moderate and has worsened. The swelling is aggravated by cold, exercise, heat, local pressure, movement, standing and walking. The patient had a response to rest. The swelling is associated with bruising, decreased mobility, joint pain, numbness and skin discoloration. Additional information: patient is here with swollen r foot and ankle that started over the weekend and she was unable to.. Diabetes (follow up) Associated symptoms include fatigue. Additional information: Patient is here to go over recent labs and talk about her current medications. Her labs were stable and really unchanged.. diabetes The problem is s table. Risk factors include: family history diabetes mellitus, over age [age] years old and sedentary lifestyle. Patient is compliant with using medication, and follow-up. Managing with: Oral medications. Associated symptoms include: burning of extremities and foot ulcers. Additional information: pt is here with foot ulcers due to diabetes. Discuss test results Pt here to discuss recent lab work Headache The severity of the problem is moderate. The symptoms are recurring. Headache timing includes no pattern. Aggravating factors include anxiety and noise. Symptoms are relieved by prescription meds. Additional information: Pt wants to discuss Emgality and if she needs to continue medication. GERD The severity of the problem is moderate. The location is epigastric. The quality of the pain is achy. Additional information: Pt wants to discuss recent EGD and colonoscopy and Dr.Anees morgan harley. diabetes The problem is s table. Risk factors include: over age [age] years old. Patient is compliant with using medication, follow-up, and using education materials. Managing with: Oral medications. Additional information: Pt returns to discuss recent labwork and HgbA1c. Discuss test results Patient her e for 6 month diabetic checkup and recent labwork results. Abrasion(s) This is an initi al visit. Symptoms related to the injury have worsened. The trauma occurred while walking in the street. The injury was not work related. The injury is aggravated by exercise, heat, local pressure, movement and walking. The patient had a response to elevation, a response to medication(s), a response to rest and a response to warm soaks and did not respond to cold compress. The injury is associated with decreased mobility and localized swelling. The patient denies any abdominal pain, change in appetite and chills. Additional information: pt is here with a blister abrasion on her R little toe. Dizziness Onset was 1 year ago. Severity is moderate. The problem is chronic. It occurs intermittently. The patient describes it as (an) imbalance, spinning and swimming. It occurs while sitting, standing and it also occurs spontaneously. Symptom is aggravated by getting out of bed, rapid movement, rapid rise and turning. Relieving factors include rest. Associated symptoms include nausea. Additional information: Patient has been receiving shots in her ears from her ENT for Meniere's disease. ENT recommended patient see us for migraine medicine. Dizziness Onset was 1 week ago. Severity is moderate. The duration of each episode is 2 Years. The problem is chronic. It occurs intermittently. The patient describes it as (an) imbalance, light-headed, spinning and unstable horizon. It occurs while bending, sitting and standing. Symptom is aggravated by rapid movement, rapid rise and turning. Relieving factors include medication and position change. Associated symptoms include nausea. Discuss test results The symptom s began 3 days ago. The symptoms are reported as being mild. Patient here to discuss recent labwork and plan of care. Functional Status Date Functional Assessmen t No Information Instructions Date Instruction Additional Infor shelli continue atorvastatin as directe d Related to Hyperlipidemia, unspecified refer to cardiology per pt requestspent 40 minutes in room with patient discussing varied issues Related to Cardiac arrhythmia, unspecified continue thyroid meds Related to Hypothyroidism, unspecified continue present ins ulin dosagerefill insulin Related to Type 2 diabetes mellitus without complications continue present meds Related to Essential (primary) hypertension High mathis flu vaccina tion administered. See immunization record. Related to Encounter for vaccination REFILL LISINOPRIL Related to Ess ential (primary) hypertension A1C, CMP WITH LIPIDS RESULTS REVIEWED WITH PATIENT Related to Encounter for general adult medical examination without abnormal findings REFILL HUMULIN R Related to Type 2 diabetes mellitus without complications Continue atorvastatin Related to Hyperlipidemia, unspecified Keep area clean and drydoxycyline 100 mg bid mg sent to pharmacy monitor for increased redness, if this occurs RTC or see primary carewarm compressesMupirocin Ibuprofen/tylenol for pain RTC if symptoms worsen or do not improve Related to Cellulitis AbscessConsent obtai nydia prior to procedure with risks and alternatives explained. Area thoroughly cleansed with 4% chlorhexidine and anesthetized with approximately 3 cc lidocaine 1%. Incision performed using a 15 blade scalpel. A small amount of purulent drainage was expressed from lesion. no packing placed. dressing applied, patient instructed on wound care. Pt was prescribed doxycyline 100 mgRTC if pain, swelling or redness significantly worsens. Pt acknowledged understanding to instructions. Related to Cutaneous abscess of groin continue present care Related to Type 2 diabetes mellitus without complications CODEINE COUGH SYRUP PRNMELNUPIRAVIR 200 MG 4 TABS Q 12 HOURS Related to COVID-19 reviewed meds and re cent labs. will continue present care Related to Type 2 diabetes mellitus without complications continue present tx Related to T ype 2 diabetes mellitus without complications ROCEPHIN 500 MG IMPE N VK 500 MG BIDHOT EPSOM SALT SOAKS Related to Cellulitis of right leg stop metformin and s tart Farixga 10 mg daily Related to Type 2 diabetes mellitus without complications will reduce meformin to 500 mg bidrefill test strips and she needs a new monitor Related to Type 2 diabetes mellitus without complications cpt Related to Type 2 diabetes mellitus without complications continue present care Related to GERD w/o esophagitis cpt Related to Type 2 diabetes mellitus without complications bactroban sterile dr ramirez bid following warm soaks. Related to Pain in unspecified ankle and joints of unspecified foot emgality sub Q given . 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
[2025-03-20 07:24] VITALS: BP 165/88; PULSE 93; RESP 20; TEMP 37.1; O2SAT 98
[2025-03-20 07:51] VITALS: BP 165/88; PULSE 92; RESP 14; O2SAT 98
--- NOTE | 2025-03-20 08:14 | XR_ITS ---
WS: [id number] Portable AP upright chest, 03/20/2025 Clinical Data: dyspnea/cough Comparison: None. Findings: No nodules, masses or effusions are seen. The heart is normal. The pulmonary vascularity is not increased. No pneumonia or pneumothorax is seen. The aortic arch shows mild calcification and tortuosity. There is a hiatal hernia behind the heart. There are monitor leads on the chest wall. XR/XR chest 1V portable [id number] Impression: Atherosclerosis.
[2025-03-20 08:31] LABS: Hematocrit 39.1 % (36-47); Hemoglobin 13.00 g/dL (11.27-16.99); Mean Corpuscular HGB Conc 33.2 g/dL (30-55); Mean Corpuscular Hemoglobin 29.2 pg (27-33); Mean Corpuscular Volume 87.9 fl (85-98); Nucleated Red Blood Cells % 0 %; Platelet Count 181 10^3/cmm (157-399); Red Blood Count 4.45 10^6/uL (3.85-5.65); White Blood Count 9.19 10^3/uL (3.29-11.43)
[2025-03-20 08:43] VITALS: BP 141/76; PULSE 76; RESP 16; O2SAT 97
[2025-03-20 08:51] LABS: Alanine Aminotransferase 15 U/L (0-33); Albumin Level 4.0 g/dL (3.5-5.2); Alkaline Phosphatase 48 U/L (35-105); Anion Gap 17.1 (5-19); Aspartate Amino Transferase 15 U/L (0-32); Blood Urea Nitrogen 15 mg/dL (8-23); Calcium 8.8 mg/dL (8.5-10.5); Carbon Dioxide 25 mmol/L (22-29); Chloride 103 mmol/L (98-107); Creatinine Clr Calc Pharmacy 55.9471; Globulin 2.8 g/dL (1.3-4.6); Glucose 138 mg/dL (65-115); Osmolality Calculated 295 mOsm/kg (285-295); Potassium 4.1 mmol/L (3.5-5.1); Sodium 141 mmol/L (136-145); Total Protein 6.8 g/dL (6.6-8.7)
--- NOTE | 2025-03-20 08:52 | ED_ITS ---
HPI - SOB/Dyspnea 2 General: Chief Complaint: Shortness of Breath/Dyspnea Stated Complaint: dizzy/gen pain Time Seen by Provider: 03/20/25 08:13 History of Present Illness: HPI Narrative: 79-year-old female presents to the [facility] en[facility] room complaint shortness of breath congestion initially began yesterday with a sore throat she had some loose stool as well no vomiting or diarrhea cough is nonproductive. Associated symptoms: Deny abdominal pain, chest pain or fever(s) Related Data Home Medications ?Medication ?Instructions ?Recorded ?Confirmed acetaminophen 500 mg tablet 1,000 mg PO BID PRN Pain 0 04/14/20 03/20/25 (Tylenol Extra Strength) calcium 600 mg (as 1 cap PO BID 04/14/20 carbonate)-vitamin D3 12.5 mcg (500 unit) capsule (Calcium with Vit D3) cetirizine 10 mg capsule (Zyrtec) 10 mg PO DAILY 04/1403/20/25 brinzolamide 1 %-brimonidine 0.2 % 1 drp ophthalmic (e ye) BID 11/08/23 03/20/25 eye drops,suspension (Simbrinza) latanoprost 0.005 % eye drops 1 drp ophthalmic (eye) D AILY 11/08/23 03/20/25 aspirin 81 mg tablet,delayed 81 mg PO DAILY 04/10/24 0 03/20/25 release albuterol sulfate 90 mcg/actuation 2 puff inhalation Q 6H PRN 03/20/25 03/20/25 aerosol inhaler Shortness Of Breath Or Wheez ing sitagliptin phosphate 50 mg tablet 50 mg PO DAILY 02/2103/20/25 (Januvia) Previous Rx's ?Medication ?Instructions ?Recorded blood-glucose meter (Accu-Chek #1 ea 04/16/20 Renata Plus Meter) rsv vaccine #1 ea 05/10/23 fluticasone 250 mcg-salmeterol 50 1 inh inhalation BID #60 ea 10/30/24 mcg/dose blistr powdr for inhalation (Advair Diskus) lancets (Accu-Chek Fastclix Lancet #100 ea 11/05/24 Drum) alendronate 70 mg tablet (Fosamax) 70 mg PO .weekly #3 0 tabs 01/31/25 blood sugar diagnostic (Accu-Chek #300 strips 01/31/25 Renata Plus test strips) gabapentin 300 mg capsule 300 mg PO DAILY #90 caps 08/15 lisinopril 5 mg tablet 5 mg PO DAILY #90 tabs 01/31 montelukast 10 mg tablet See Rx Instructions .Route 0 01/31/25 .COMPLEX #90 tabs omeprazole 40 mg capsule,delayed 40 mg PO DAILY #90 ca ps 01/31/25 release simvastatin 80 mg tablet See Rx Instructions .Route 0 01/31/25 .COMPLEX #90 tabs Allergies Allergy/AdvReac Type Severity Reaction Status Date / Time lincomycin (From Lincocin) AdvReac Mild HIVES Verified 03/13/25 14:14 Review of Systems 2 Const: Denies: fever(s) or chills Card: Denies: chest pain Resp: Denies: dyspnea GI: Denies: abdominal pain : Denies: dysuria, urinary frequency or urinary urgency Musc: Denies: neck pain or back pain Skin/Breast: Denies: rash PFSH ED 2 PFSH: Medical History Onychomycosis Glaucoma Diabetic neuropathy Osteopenia of femoral neck, bilateral Type 2 diabetes mellitus, without long-term current use of insulin Hypertension Asthma Dyslipidemia GERD (gastroesophageal reflux disease) Allergic rhinitis Surgical History History of D&C History of tonsillectomy Family History Other Diabetes Parkinson disease Social History Smoking and tobacco/nicotine status: former use of tobacco/nicotine Alcohol intake: never Substance/Drug Use: never Physical Exam 2 Const: COMMON NORMALS: no acute distress GENERAL APPEARANCE: cooperative and comfortable ORIENTATION/CONSCIOUSNESS: Yes awake, Yes oriented to person, Yes oriented to place and Yes oriented to time HENMT: COMMON NORMALS: normocephalic, atraumatic and hearing grossly normal bilaterally HEAD & SCALP: normocephalic and atraumatic Resp: COMMON NORMALS: normal respiratory effort, No retractions, No use of accessory muscles and clear to auscultation bilaterally AUSCULTATION: clear to auscultation bilaterally Cardio: COMMON NORMALS: regular rate, regular rhythm and No murmurs present (Cardio) RATE: regular rate RHYTHM: regular rhythm GI: COMMON NORMALS: Soft to palpation and No hepatosplenomegaly present A USCULTATION: Yes normoactive bowel sounds PALPATION: Yes Soft to palpation, No Tenderness to palpation present (GI), No Guarding due to palpation present (GI) and Yes No hepatosplenomegaly present Extremity: COMMON NORMALS: normal to inspection, capillary refill normal, no clubbing, cyanosis or edema, no calf tenderness and no pedal edema Neuro: SENSORIUM/ORIENTATION: Yes oriented to person, Yes oriented to place and Yes oriented to time Skin: COMMON NORMALS: no rashes or lesions noted GENERAL SKIN EXAM: no rashes or lesions noted Course 2 Vital Signs: Vital signs: Vital Signs Temperature 98.8 F 03/20/25 07:24 Pulse Rate 87 03/20/25 09:12 Respiratory Rate 19 H 03/20/25 09:12 Blood Pressure 142/70 03/20/25 09:12 Pulse Oximetry 98 03/20/25 09:12 Oxygen Delivery Me thod Room Air 03/20/25 08:43 MDM - SOB/Dyspnea Medical Decision Making Patient is COVID-positive. She is tolerating all vital signs stable discharge home supportive cares follow-up as needed advised to avoid exposure to other people until 5 days after onset of symptoms and symptoms are diminishing. Medical Records I reviewed the patient's medical records. Lab Data I reviewed the patient's lab results. 03/20/25 08:25 03/20/25 08:25 Labs/Radiology: Radiology Impressions Chest X-Ray 03/20/25 08:14 Impression: Atherosclerosis. Laboratory Results WBC 9.19 10^3/uL (3.29-11.43) 03/20/25 08:25 RBC 4.45 10^6/uL (3.85-5.65) 03/20/25 08:25 Hgb 13.00 g/dL (11.27-16.99) 03/20/25 08:25 Hct 39.1 % (36-47) 03/20/25 08:25 MCV 87.9 fl (85-98) 03/20/25 08:25 MCH 29.2 pg (27-33) 03/20/25 08:25 MCHC 33.2 g/dL (30-55) 03/20/25 08:25 RDW 14.5 % (12.1-15.1) 03/20/25 08:25 Plt Count 181 10^3/cmm (157-399) 03/20/25 08:25 MPV 10.7 fL (7.4-10.4) H 03/20/25 08:25 Neut % (Auto) 90.1 % 03/20/25 08:25 Lymph % (Auto) 6.0 % 03/20/25 08:25 Starke % (Auto) 2.8 % 03/20/25 08:25 Eos % (Auto) 0.1 % 03/20/25 08:25 Baso % (Auto) 0.3 % 03/20/25 08:25 Neut # (Auto) 8.28 10^3/uL (1.8-7.7) H 03/20/25 08:25 Lymph # (Auto) 0.6 10^3/uL (0.8-4.8) L 03/20/25 08:25 Starke # (Auto) 0.3 10^3/uL (0.2-0.9) 03/20/25 08:25 Eos # (Auto) 0.0 10^3/uL (0.0-0.8) 03/20/25 08:25 Baso # (Auto) 0.0 10^3/uL (0.0-0.1) 03/20/25 08:25 Nucleated RBC % (auto) 0 % 03/20/25 08:25 Nucleated RBCs # 0.0 /100WBC 03/20/25 08:25 Sodium 141 mmol/L (136-145) 03/20/25 08:25 Potassium 4.1 mmol/L (3.5-5.1) 03/20/25 08:25 Chloride 103 mmol/L (98-107) 03/20/25 08:25 Carbon Dioxide 25 mmol/L (22-29) 03/20/25 08:25 Anion Gap 17.1 (5-19) 03/20/25 08:25 BUN 15 mg/dL (8-23) 03/20/25 08:25 Creatinine 0.7 mg/dL (0.5-0.9) 03/20/25 08:25 GFR Calculation Not Reportable 03/20/25 08:25 Glucose 138 mg/dL (65-115) H 03/20/25 08:25 Calculated Osmolality 295 mOsm/kg (285-295) 03/20/25 08:25 Calcium 8.8 mg/dL (8.5-10.5) 03/20/25 08:25 Total Bilirubin 0.5 mg/dL (0.15-1.2) 03/20/25 08:25 AST 15 U/L (0-32) 03/20/25 08:25 ALT 15 U/L (0-33) 03/20/25 08:25 Alkaline Phosphatase 48 U/L (35-105) 03/20/25 08:25 Total Protein 6.8 g/dL (6.6-8.7) 03/20/25 08: Albumin 4.0 g/dL (3.5-5.2) 03/20/25 08:25 Globulin 2.8 g/dL (1.3-4.6) 03/20/25 08:25 Influenza A (PCR) Negative (Negative) 03/20/25 08:30 Influenza Type B (PCR) Negative (Negative) 03/20/25 08:30 RSV (PCR) Negative (Negative) 03/20/25 08:30 SARS-CoV-2 (PCR) Positive (Negative) A 03/20/25 08:30 All radiology interpretation(s) finalized by discharge Discharge Plan Discharge Patient Disposition: Home Clinical Impression: COVID-19 Condition: Stable Prescriptions: No Action acetaminophen [Tylenol Extra Strength] 500 mg tablet 1,000 mg PO BID PRN (Reason: Pain) calcium carbonate-vitamin D3 [Calcium 600 with Vitamin D3] 600 mg(1,500mg) - 500 unit capsule 1 cap PO BID Zyrtec 10 mg capsule 10 mg PO DAILY (DME) rsv vaccine See Rx Instructions .Route .MEDSUPPLY Qty: 1 0RF Rx Instructions: As directed latanoprost 0.005 % drops 1 drp ophthalmic (eye) DAILY Simbrinza 1-0.2 % drops,suspension 1 drp ophthalmic (eye) BID aspirin 81 mg tablet,delayed release (DR/EC) 81 mg PO DAILY lisinopril 5 mg tablet 5 mg PO DAILY Qty: 90 1RF montelukast 10 mg tablet See Rx Instructions .ROUTE .COMPLEX Qty: 90 1RF Dose Instruction: TAKE 1 TABLET BY MOUTH EVERY DAY Rx Instructions: TAKE 1 TABLET BY MOUTH EVERY DAY gabapentin 300 mg capsule 300 mg PO DAILY Qty: 90 1RF alendronate [Fosamax] 70 mg tablet 70 mg PO .weekly Qty: 30 1RF Rx Instructions: Weekly omeprazole 40 mg capsule,delayed release(DR/EC) 40 mg PO DAILY Qty: 90 1RF simvastatin 80 mg tablet See Rx Instructions .ROUTE .COMPLEX Qty: 90 1RF Dose Instruction: TAKE 1 TABLET BY MOUTH EVERY DAY Rx Instructions: TAKE 1 TABLET BY MOUTH EVERY DAY (DME) Accu-Chek Renata Plus test strp Strip See Rx Instructions .ROUTE .COMPLEX Qty: 300 1RF Dose Instruction: test TWICE DAILY Rx Instructions: test TWICE DAILY fluticasone propion-salmeterol [Advair Diskus] 250-50 mcg/dose blister with device 1 inh inhalation BID Qty: 60 5RF (DME) blood-glucose meter [Accu-Chek Renata Plus Meter] Misc See Rx Instructions .ROUTE .MEDSUPPLY Qty: 1 0RF Rx Instructions: As directed (DME) lancets [Accu-Chek Fastclix Lancet Drum] Misc See Rx Instructions .ROUTE .COMPLEX Qty: 100 0RF Dose Instruction: USE TWICE DAILY Rx Instructions: USE TWICE DAILY Januvia 50 mg tablet 50 mg PO DAILY albuterol sulfate 90 mcg/actuation HFA aerosol inhaler 2 puff INHALATION Q6H PRN (Reason: Shortness Of Breath Or Wheezing) Discharge Orders: Discharge ED (Routine); Ordered 03/20/25 Ordered By: Sloan Hendrix Referrals: Shelbie Cardoso DO [Primary Care Provider, Family Practice] Discharge Diet: Usual diet Discharge Activity: Resume usual activity Patient Instructions: COVID-19 (Coronavirus Disease 2019) (ED), Opioid Safety, Pain Management, Patient Portal & Moises Instructions Activity Restrictions/Additional Instructions: Thank you for choosing [facility] [place] for your healthcare needs today. It is very important that you follow up as instructed or that you return to the Emergency Department should you have concerns or if your condition changes or worsens in any way. You were seen today with complaints of congestion and cough. Chest x-ray was normal your testing showed that you have COVID. At your vital signs are stable no interventions or treatment are needed care at this point is symptomatic. Avoid contact with others until you 5 days from onset of symptoms with decreasing symptoms and no fever Print Language: Swazi Coding Level of Care Code ED Territory Service Representative for Letty Sommers
--- NOTE | 2025-03-20 09:00 | ECG_ITS ---
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 Measurements Intervals [place] Rate: 76 P: 61 DE: 160 QRS: 54 QRSD: 86 T: 32 QT: 360 QTc: 405 Interpretive Statements SINUS RHYTHM MINIMAL ST DEPRESSION [0.025+ mV ST DEPRESSION] Compared to ECG 04/10/2024 12:44:55 ST (T wave) deviation now present Sinus bradycardia no longer present Electronically Signed On 03-21-2025 10:24:35 CDT by Spencer Tamez M.D. [email or web address]
[2025-03-20 09:12] VITALS: BP 142/70; PULSE 87; RESP 19; O2SAT 98
[2025-03-20 09:18] LABS: Respiratory Syncytial Virus Ce NEGATIVE (Negative)
[2025-03-20 09:37] LABS: SARS-CoV-2 PCR Positive (Negative)
[2025-03-20 10:20] VITALS: BP 139/70; PULSE 89; RESP 19; O2SAT 97
== END 2025-03-20 10:20 | disposition home or self-care (01) ==
PROVIDERS: Emergency Provider Family Medicine; PCP Family Medicine
DX: U07.1 COVID-19 (principal); Z11.52 Encounter for screening for COVID-19; Z79.82 Long term (current) use of aspirin; E78.5 Hyperlipidemia, unspecified; I10 Essential (primary) hypertension; E11.40 Type 2 diabetes mellitus with diabetic neuropathy, unspecified
CPT/HCPCS: 36415; 71045; 80053; 85025; 87637; 93005; 99285

== ENCOUNTER → 2025-03-26 09:57 | Outpatient (BNVA) | payer OTHER, MEDICAID, SELFPAY | PROVIDERS: PCP Family Medicine; Visit Provider Family Medicine | DX: R30.0 Dysuria (principal) | CPT/HCPCS: 81000; 87077; 87086; 87184 ==

== ENCOUNTER → 2025-05-02 11:59 | Outpatient (BNVA) | payer OTHER, MEDICAID, SELFPAY | PROVIDERS: PCP Family Medicine; Visit Provider Family Medicine | DX: Z13.6 Encounter for screening for cardiovascular disorders (principal); E11.9 Type 2 diabetes mellitus without complications | CPT/HCPCS: 80053; 80061; 83036 ==

== ENCOUNTER 2025-07-31 12:16 | Outpatient (CLI) | payer OTHER, MEDICAID, SELFPAY | END 2025-07-31 12:17 | disposition home or self-care (01) | LOC: SLEEP 12:17 | PROVIDERS: PCP Family Medicine; Referring Provider Family Medicine; Visit Provider Internal Medicine Pulmonary Disease | DX: G47.33 Obstructive sleep apnea (adult) (pediatric) (principal); G47.36 Sleep related hypoventilation in conditions classified elsewhere | CPT/HCPCS: G0399 ==

== ENCOUNTER → 2025-08-19 10:24 | Outpatient (BNVA) | payer OTHER, MEDICAID, SELFPAY | PROVIDERS: PCP Family Medicine; Visit Provider Family Medicine | DX: B35.1 Tinea unguium (principal); E11.9 Type 2 diabetes mellitus without complications | CPT/HCPCS: 80053; 83036 ==